=== PATIENT | female | born 1965 | race Caucasian/White ===

== ENCOUNTER 2017-11-12 07:49 | Day surgery (SDC) | payer BC ==
[2017-11-12 09:45] VITALS: BP 122/60
== END 2017-11-12 09:57 | disposition home or self-care (01) | DRG 951 ==
LOC: ENDO 07:49
PROVIDERS: ATTEND Internal Medicine Gastroenterology
PROC: 0DBN8ZX Excision of Sigmoid Colon, Via Natural or Artificial Opening Endoscopic, Diagnostic (ICD-10-PCS; principal; 2017-11-12)
DX: Z12.11 Encounter for screening for malignant neoplasm of colon (principal); C77.2 Secondary and unspecified malignant neoplasm of intra-abdominal lymph nodes; C18.7 Malignant neoplasm of sigmoid colon; K62.89 Other specified diseases of anus and rectum; K64.4 Residual hemorrhoidal skin tags; K64.8 Other hemorrhoids